=== PATIENT | female | born 1990 | race African-American/Black ===

== ENCOUNTER 2017-03-06 05:11 | Inpatient (IN) ==
[2017-03-06] MEDS ORDERED: LR 1,000 ML IV SCH ×2 (05:33→05:58)
[2017-03-06] MEDS ORDERED: STADOL IV ONE (05:34)
[2017-03-06 05:47] LABS: URINE SOURCE VOIDED
[2017-03-06 05:57] LABS: BILIRUBIN URINE NEGATIVE (NEGATIVE); BLOOD URINE 4+ (NEGATIVE); CLARITY CLEAR (CLEAR); COLOR YELLOW; GLUCOSE URINE NEGATIVE (NEGATIVE); LEUKOCYTES URINE 2+ (NEGATIVE); NITRITE URINE NEGATIVE (NEGATIVE); PROTEIN URINE TRACE mg/dL (NEGATIVE); SP GRAVITY URINE 1.015; UROBILINOGEN URINE 1+(1 mg/dL)
[2017-03-06] MEDS ORDERED: AMPICILLIN IV ONE (05:58)
[2017-03-06] MEDS ORDERED: PEPCID PO PRN (05:58)
[2017-03-06] MEDS ORDERED: TYLENOL PO PRN (05:58)
[2017-03-06] MEDS ORDERED: STADOL IV PRN (05:58)
[2017-03-06] MEDS ORDERED: PEPCID IV PRN (05:58)
[2017-03-06] MEDS ORDERED: [UNRECOGNIZED DRUG - OTHER] IV ONE (05:58)
[2017-03-06] MEDS ORDERED: KEFZOL 1 GM/D5W 1 GM/50 ML IVPB IV PRN (05:58)
[2017-03-06] MEDS ORDERED: PITOCIN 30 UNITS/LR 30 UNITS/500 ML IV.SOLN IV SCH (05:58)
[2017-03-06] MEDS ORDERED: ZOFRAN IV PRN (05:58)
[2017-03-06 06:00] LABS: UR AMPHETAMINES QUAL NONE DETECTED (NONE DETECT); UR BARBITUATES QUAL NONE DETECTED (NONE DETECT); UR BENZODIAZEPIN QUAL NONE DETECTED (NONE DETECT); UR COCAINE QUAL NONE DETECTED (NONE DETECT); UR MDMA QUAL NONE DETECTED (NONE DETECT); UR METHADONE QUAL NONE DETECTED (NONE DETECT); UR METHAMPHETAMINE QUAL NONE DETECTED (NONE DETECT); UR OPIATES QUAL NONE DETECTED (NONE DETECT); UR OXYCODONE QUAL NONE DETECTED (NONE DETECT); UR PCP QUAL NONE DETECTED (NONE DETECT)
[2017-03-06] MEDS ORDERED: SODIUM CHLORIDE 0.9% INJ SCH (06:00)
[2017-03-06 06:01] LABS: UR CANNABINOIDS QUAL NONE DETECTED (NONE DETECT); UR TCA QUAL NONE DETECTED (NONE DETECT)
[2017-03-06 06:02] LABS: MANUAL DIFF NEEDED? NO
[2017-03-06 06:05] LABS: BASO% 0.2 % (0.0-0.8); EOS# 0.03 X1000 (0.0-0.7); EOS% 0.4 % (0.0-10.0); HEMATOCRIT 32.9 % (37.0-47.0); HEMOGLOBIN 11.1 g/dL (12.0-16.0); IMM GRAN# 0.04 X1000 (0.0-0.04); IMM GRAN% 0.5 % (0.0-0.5); LYMPH# 2.39 X1000 (1.2-3.4); LYMPH% 28.5 % (20.5-51.1); MCH 29.5 PG (27-31); MCHC 33.7 g/dL (33-37); MCV 87.5 FL (81-99); MONO# 0.59 X1000 (0.11-0.59); MPV 10.3 FL (7.4-10.4); NEUT% 63.4 % (42.2-75.2); PLT 272 X1000 (130-400); RBC 3.76 XMIL (4.2-5.4)
[2017-03-06] MEDS ORDERED: NAROPIN 0.2% EPIDURAL SCH (07:15)
[2017-03-06] MEDS ORDERED: MINERAL OIL PO ONE (08:18)
[2017-03-06] MEDS ORDERED: PITOCIN 30 UNITS/LR 30 UNITS/500 ML IV.SOLN IV ONE (08:20)
[2017-03-06] MEDS ORDERED: BOOSTRIX VACCINE IM ONE (08:20)
[2017-03-06] MEDS ORDERED: NORCO-5 PO PRN (08:20)
[2017-03-06] MEDS ORDERED: XYLOCAINE-MPF 1% INJ PRN (08:20)
[2017-03-06] MEDS ORDERED: BENADRYL IV PRN (08:20)
[2017-03-06] MEDS ORDERED: PITOCIN IM PRN (08:20)
[2017-03-06] MEDS ORDERED: PITOCIN 20 UNITS/LR 20 UNITS/1,000 ML IV.SOLN IV SCH (08:20)
[2017-03-06] MEDS ORDERED: HYDROXYZINE IM PRN (08:20)
[2017-03-06] MEDS ORDERED: HYDROXYZINE PO PRN (08:20)
[2017-03-06] MEDS ORDERED: PERI MEDS (DERMOPLAST/NUPERCAINAL/TUCKS) MISC PRN (08:20)
[2017-03-06] MEDS ORDERED: BENADRYL PO PRN (08:20)
[2017-03-06] MEDS ORDERED: AMBIEN PO PRN (08:20)
[2017-03-06] MEDS ORDERED: MINERAL OIL PO PRN (08:20)
[2017-03-06] MEDS ORDERED: CYTOTEC PO PRN (08:20)
[2017-03-06] MEDS ORDERED: M-M-R II VACCINE SUBQ ONE (08:20)
[2017-03-06] MEDS ORDERED: AMPICILLIN 1 GM/NS 1 GM/50 ML IVPB IV SCH (09:59)
[2017-03-06] MEDS: NORCO-10 PO PRN ×2 (11:39→19:36)
[2017-03-06] MEDS: MOTRIN PO PRN ×2 (11:39→19:35)
[2017-03-06] MEDS: PERICOLACE PO SCH (21:16)
[2017-03-07 05:19] LABS: HEMATOCRIT 30.6 % (37.0-47.0); HEMOGLOBIN 10.1 g/dL (12.0-16.0); MCH 29.4 PG (27-31); MCV 89.2 FL (81-99); MPV 10.9 FL (7.4-10.4); RBC 3.43 XMIL (4.2-5.4)
[2017-03-07] MEDS: NORCO-10 PO PRN ×2 (11:07→23:56)
[2017-03-07] MEDS: MOTRIN PO PRN ×2 (11:07→23:56)
[2017-03-07] MEDS: PERICOLACE PO SCH (21:24)
[2017-03-08 07:58] VITALS: BP 147/89
[2017-03-08] MEDS: MOTRIN PO PRN (09:15)
[2017-03-08] MEDS: NORCO-10 PO PRN (12:57)
== END 2017-03-08 13:02 | disposition home or self-care (01) ==
LOC: P.OPLD 05:11 → P.LD 05:14 → P.WC 14:12
PROVIDERS: ADMIT Obstetrics & Gynecology; ATTEND Obstetrics & Gynecology

== ENCOUNTER 2019-08-16 09:32 | Inpatient (IN) ==
[2019-08-16] MEDS ORDERED: REGLAN PO ONE (09:41)
[2019-08-16] MEDS ORDERED: KEFZOL 1 GM/D5W 1 GM/50 ML IVPB IV PRN (09:41)
[2019-08-16] MEDS ORDERED: TYLENOL PO PRN (09:41)
[2019-08-16] MEDS ORDERED: PEPCID IV PRN (09:41)
[2019-08-16] MEDS ORDERED: PEPCID PO PRN (09:41)
[2019-08-16] MEDS ORDERED: PEPCID PO ONE (09:41)
[2019-08-16] MEDS ORDERED: STADOL IV PRN (09:41)
[2019-08-16] MEDS ORDERED: LR 500 ML IV ONE (09:41)
[2019-08-16] MEDS ORDERED: ZOFRAN IV PRN (09:41)
[2019-08-16] MEDS ORDERED: PITOCIN 30 UNITS/NS 30 UNIT/500 ML IV.SOLN IV SCH ×2 (09:45→11:00)
[2019-08-16] MEDS ORDERED: SODIUM CHLORIDE 0.9% INJ SCH (09:45)
[2019-08-16] MEDS ORDERED: AMPICILLIN 2 GM in NS 100 ML IV ONE (10:02)
[2019-08-16] MEDS: LR 1,000 ML IV SCH ×2 (10:07→10:30)
[2019-08-16] MEDS ORDERED: XYLOCAINE-MPF 1% INJ ONE (10:18)
[2019-08-16 10:20] LABS: BASO# 0.03 X1000 (0.0-0.2); BASO% 0.3 % (0.0-0.8); EOS# 0.07 X1000 (0.0-0.7); EOS% 0.7 % (0.0-10.0); HEMATOCRIT 31.6 % (37.0-47.0); HEMOGLOBIN 10.1 g/dL (12.0-16.0); IMM GRAN# 0.05 X1000 (0.0-0.04); IMM GRAN% 0.5 % (0.0-0.5); LYMPH# 2.98 X1000 (1.2-3.4); LYMPH% 30.1 % (20.5-51.1); MCH 28.8 PG (27-31); MONO# 0.59 X1000 (0.11-0.59); MPV 10.5 FL (7.4-10.4); NEUT# 6.18 X1000 (1.4-6.5); NEUT% 62.4 % (42.2-75.2); PLT 300 X1000 (130-400); RBC 3.51 XMIL (4.2-5.4); RDW 13.7 % (11.5-14.5)
[2019-08-16 10:32] LABS: URINE SOURCE VOIDED
[2019-08-16 10:41] LABS: INR 1.03; PROTIME 13.6 Seconds (11.0-16.0); PTT 28.8 Seconds (22.3-41.8)
[2019-08-16 10:44] LABS: BILIRUBIN URINE NEGATIVE (NEGATIVE); BLOOD URINE LARGE (NEGATIVE); COLOR BROWN; GLUCOSE URINE NEGATIVE (NEGATIVE); KETONE URINE NEGATIVE (NEGATIVE); LEUKOCYTES URINE MODERATE (NEGATIVE); NITRITE URINE NEGATIVE (NEGATIVE); PH URINE 7.5; PROTEIN URINE 70 mg/dL (NEGATIVE); TURBIDITY URINE TURBID (CLEAR); UROBILINOGEN URINE NORMAL (NORMAL)
[2019-08-16] MEDS ORDERED: HYDROXYZINE IM PRN (10:47)
[2019-08-16] MEDS ORDERED: CYTOTEC PO PRN (10:47)
[2019-08-16] MEDS ORDERED: MINERAL OIL PO PRN (10:47)
[2019-08-16] MEDS ORDERED: PERCOCET-10 PO PRN (10:47)
[2019-08-16] MEDS ORDERED: PITOCIN IM PRN (10:47)
[2019-08-16] MEDS ORDERED: XYLOCAINE-MPF 1% INJ PRN (10:47)
[2019-08-16] MEDS ORDERED: BENADRYL IV PRN (10:47)
[2019-08-16] MEDS ORDERED: PERI MEDS (DERMOPLAST/NUPERCAINAL/TUCKS) MISC PRN (10:47)
[2019-08-16] MEDS ORDERED: BENADRYL PO PRN (10:47)
[2019-08-16] MEDS ORDERED: ATARAX PO PRN (10:47)
[2019-08-16] MEDS ORDERED: BOOSTRIX VACCINE IM ONE (10:47)
[2019-08-16] MEDS ORDERED: AMBIEN PO PRN (10:47)
[2019-08-16] MEDS ORDERED: M-M-R II VACCINE SUBQ ONE (10:47)
[2019-08-16] MEDS ORDERED: PITOCIN 20 UNITS/NS 20 UNITS/1,000 ML IV.SOLN IV SCH (11:00)
[2019-08-16 11:06] LABS: UR AMPHETAMINES QUAL NONE DETECTED (NONE DETECT); UR BARBITUATES QUAL NONE DETECTED (NONE DETECT); UR BENZODIAZEPIN QUAL NONE DETECTED (NONE DETECT); UR CANNABINOIDS QUAL NONE DETECTED (NONE DETECT); UR COCAINE QUAL NONE DETECTED (NONE DETECT); UR METHADONE QUAL NONE DETECTED (NONE DETECT); UR OPIATES QUAL NONE DETECTED (NONE DETECT); UR OXYCODONE QUAL NONE DETECTED (NONE DETECT); UR PCP QUAL NONE DETECTED (NONE DETECT)
[2019-08-16] MEDS: MOTRIN PO PRN ×2 (11:50→20:01)
--- NOTE | 2019-08-16 11:58 | HISTORY AND PHYSICAL ---
ADMITTING PHYSICIAN: Dr. Bobbi Dickey. CHIEF COMPLAINT: Vaginal bleeding and abdominal pain. HISTORY OF PRESENT ILLNESS: This is a 28-year-old, G4, P1-2-0-3, at 36 weeks and 3 days, who presents to Labor and Delivery with a complaint of vaginal bleeding and frequent contractions that started approximately 1.5 hours ago. She denies any rupture of membranes. She endorses movement. She has a history of deliveries x2, and was transferred from [facility] to [facility] last week for contractions. She was discharged from [facility] on 08/12/2019. Upon arrival, her cervical exam was noted to be 3/80, and 0 station, with a small amount of dark red blood noted on exam. Upon my arrival, repeat cervical exam revealed cervix 8/90 and 0 station. Decision was made to admit the patient for labor. Her GBS status is unknown. She has received limited care through our clinic, and she is dated by a T2 ultrasound with an estimated due date of 09/10/2019. REVIEW OF SYSTEMS: Negative, except as mentioned in the HPI. OBSTETRIC HISTORY: 1. G1, spontaneous vaginal delivery at 40 weeks, male, 5 pounds 13 ounces (2016). 2. G2, Spontaneous vaginal delivery at 28 weeks, female, complicated by labor and delivery (2017). 3. G3, spontaneous vaginal delivery at 26 weeks, male, complicated by labor and delivery (2018). 4. G4 is her current . This has been complicated by limited care, short-interval , history of Chlamydia with treatment this , and history of delivery. GYNECOLOGIC HISTORY: History of Chlamydia this with treatment, and repeat testing negative. History of abnormal Pap smear in 2007 with cryotherapy. Menarche was at age 10. PAST MEDICAL HISTORY: Obesity, tobacco abuse. MEDICATIONS: vitamin p.o. daily. ALLERGIES: No known drug allergies. PAST SURGICAL HISTORY: History of breast reduction surgery. SOCIAL HISTORY: She smokes approximately 3 cigarettes a day. She denies any alcohol or drug use. FAMILY HISTORY: Mother with diabetes and hypertension, aunt with colon cancer, and a brother with asthma. LABORATORY DATA: Blood type O positive. HIV negative. RPR negative. Rubella nonimmune. Gonorrhea and chlamydia negative. Hepatitis B negative. Urinary drug screen negative. One-hour GTT 111. GBS status unknown. PHYSICAL EXAMINATION: VITAL SIGNS: Temperature 98.2 degrees, heart rate 105, blood pressure 141/96, respiratory rate 24, oxygen saturation 99% on room air. heart tracings 130/moderate/positive acceleration/positive variable decelerations, tocometer irritability. GENERAL: Alert, in moderate distress secondary to pain. CARDIOVASCULAR: Regular rate and rhythm. LUNGS: Clear to auscultation bilaterally. No respiratory distress. ABDOMEN: Soft, gravid, nontender. Soft in between contractions. PELVIC: Sterile vaginal exam at 8/80/0 station with a small amount of dark red blood noted on exam. EXTREMITIES: No clubbing, cyanosis, or edema. There are 2+ DTRs. IMAGING: Bedside ultrasound: Vertex presentation. ASSESSMENT AND PLAN: A 28-year-old, G4, P2-2-0-3, at 36 weeks and 3 days, who presents to Labor and Delivery in labor with a history of delivery x2, short-interval , limited care, tobacco abuse, obesity, history of chlamydia this with treatment. 1. Admit to Labor and Delivery. Maternal status reassuring. 2. Will draw CBC and coags due to vaginal bleeding on presentation. 3. Will treat GBS unknown status with ampicillin for prophylaxis. 4. The patient may have epidural if she desires. 5. Anticipate vaginal delivery. 6. CEFM/[place] JIM
--- NOTE | 2019-08-16 12:18 | OPERATIVE NOTE ---
PROCEDURE DATE: 08/16/2019 PROCEDURE: A 28-year-old, G4, P1-2-0-3, at 36 weeks and 3 days, presented to Labor and Delivery in labor. She progressed to complete quickly. AROM was performed prior to delivery with clear fluid mixed with blood. She underwent a spontaneous vaginal delivery of a vigorous, viable male over an intact perineum. delivered in SAIGE presentation, and head, body, and shoulders delivered without difficulty with maternal pushing effort. Apgars 8/10. Labor was spontaneous. Placenta delivered spontaneously with 3-vessel cord. No lacerations were noted. ANESTHESIA: None. BLOOD LOSS: 300 mL. Pediatric nurse in attendance. Mother stable. [facility]
[2019-08-16] MEDS: PERCOCET-5 PO PRN ×2 (12:26→21:40)
[2019-08-16] MEDS ORDERED: AMPICILLIN 1 GM in NS 50 ML IV SCH (14:02)
[2019-08-16] MEDS: PERICOLACE PO SCH (21:03)
[2019-08-17 05:21] LABS: BASO# 0.03 X1000 (0.0-0.2); BASO% 0.2 % (0.0-0.8); EOS% 1.4 % (0.0-10.0); HEMOGLOBIN 8.9 g/dL (12.0-16.0); IMM GRAN# 0.08 X1000 (0.0-0.04); IMM GRAN% 0.6 % (0.0-0.5); LYMPH# 3.63 X1000 (1.2-3.4); LYMPH% 25.9 % (20.5-51.1); MCH 28.7 PG (27-31); MCHC 31.8 g/dL (33-37); MCV 90.3 FL (81-99); MONO# 0.68 X1000 (0.11-0.59); MONO% 4.9 % (1.7-9.3); MPV 10.2 FL (7.4-10.4); NEUT# 9.37 X1000 (1.4-6.5); PLT 271 X1000 (130-400); RDW 13.7 % (11.5-14.5); WBC 13.99 X1000 (4.8-10.8)
--- NOTE | 2019-08-17 06:34 | OB/GYN PROGRESS NOTE ---
- Subjective Pt seen and examined. Currently w/o complaints. Ambulating and urinating w/o difficulty. Tolerating regular diet. Denies N/V/F/C. +bottle feeding. Reports decreased lochia. Desires Depo-Provera for contraception OB Physical Exam Vital Signs - 8 hr 08/17/19 00:10 08/17/19 05:05 Temperature 97.5 F L 97.0 F L Pulse Rate 81 71 Respiratory Rate 18 18 Blood Pressure 115/57 111/64 O2 Sat by Pulse Oximetry 97 100 - CONSTITUTIONAL General Appearance: appears well, alert, no apparent distress - RESPIRATORY Respiratory: lungs clear - CARDIOVASCULAR Cardiovascular: regular rate, rhythm - GASTROINTESTINAL (ABDOMEN) Abdominal Exam: normal bowel sounds, non tender, soft - MUSCULOSKELETAL Extremity: no pedal edema, no calf tenderness - PSYCHIATRIC Psych/Mental Status: normal mood/affect, oriented x 3 Active Medications Generic Name Dose Route Start Last Admin Trade Name Freq PRN Reason Stop Dose Admin Acetaminophen 650 mg 08/16/19 09:41 Tylenol PO Q4-6H PRN PRN Headache Benzocaine 1 each 08/16/19 10:47 Alina Meds (Dermoplast/Nupercainal/Tucks) MISC 3-4XDAY PRN PRN episiotomy/hemorrhoids Butorphanol Tartrate 2 mg 08/16/19 09:41 Stadol IV PRN PRN Pain Diphenhydramine HCl 12.5 mg 08/16/19 10:47 Benadryl IV Q4H PRN PRN Itching Diphenhydramine HCl 25 mg 08/16/19 10:47 Benadryl PO Q4H PRN PRN Itching Famotidine 40 mg 08/16/19 09:41 Pepcid PO Q12H PRN PRN GI upset or indigestion Hydroxyzine HCl 50 mg 08/16/19 10:47 Hydroxyzine IM Q3-4H PRN PRN Nausea Hydroxyzine HCl 50 mg 08/16/19 10:47 Atarax PO Q3-4H PRN PRN Nausea Oxytocin/Sodium Chloride 30 unit in 500 mls @ 0 mls/hr 08/16/19 09:45 08/16/19 10:40 Pitocin 30 Units/Ns IV 333 mls/hr .Q0M EDGAR Administration As Directed Oxytocin/Sodium Chloride 20 units in 1,000 mls @ 0 mls/hr 08/16/19 11:00 08/16/19 11:49 Pitocin 20 Units/Ns IV 125 mls/hr .Q0M EDGAR Administration As Directed Ibuprofen 800 mg 08/16/19 10:47 08/16/19 20:01 Motrin PO 800 mg Q8H PRN PRN Administration cramping Misoprostol 800 microgm 08/16/19 10:47 Cytotec PO PRN PRN Severe bleeding Ondansetron HCl 4 mg 08/16/19 09:41 Zofran IV PRN PRN Nausea Oxycodone/Acetaminophen 1 each 08/16/19 10:47 08/16/19 21:40 Percocet-5 PO 1 each Q3-4H PRN PRN Administration Pain (1-6 on Pain Scale) Oxycodone/Acetaminophen 1 each 08/16/19 10:47 Percocet-10 PO Q3-4H PRN PRN Pain (7-10 on Pain Scale) Oxytocin 20 unit 08/16/19 10:47 Pitocin IM PRN PRN Severe bleeding Senna/Docusate Sodium 1 each 08/16/19 21:00 08/16/19 21:03 Pericolace PO 1 each QHS EDGAR Administration Zolpidem Tartrate 10 mg 08/16/19 10:47 Ambien PO HS PRN PRN Sleep Laboratory Results - last 24 hr 08/16/19 08/16/19 08/16/19 09:35 09:35 09:55 WBC RBC Hgb Hct MCV MCH MCHC RDW Std Deviation Plt Count MPV Immature Gran % (Auto) Neut % (Auto) Lymph % (Auto) [place] % (Auto) Eos % (Auto) Baso % (Auto) Immature Gran # (Auto) Neut # (Auto) Lymph # (Auto) [place] # (Auto) Eos # (Auto) Baso # (Auto) PT INR PTT (Actin FS) Fibrinogen Urine Source VOIDED Urine Color BROWN Urine Turbidity TURBID Urine pH 7.5 Ur Specific [place] 1.020 Urine Protein 70 A Ur Glucose (Stick) NEGATIVE Ur Ketones (Stick) NEGATIVE Urine Blood LARGE A Urine Nitrite NEGATIVE Urine Bilirubin NEGATIVE Urobilinogen Dipstick NORMAL Urine Leukocytes MODERATE A Urine Opiates Screen NONE DETECTED Ur Oxycodone Screen NONE DETECTED Ur Methadone, Qual NONE DETECTED Ur Barbiturates Screen NONE DETECTED Ur Phencyclidine Scrn NONE DETECTED Ur Amphetamines Screen NONE DETECTED U Benzodiazepines Scrn NONE DETECTED Urine Cocaine Screen NONE DETECTED U Cannabinoids Screen NONE DETECTED RPR NON-REACTIVE 08/16/19 08/16/19 08/17/19 09:55 10:26 05:14 WBC 9.90 13.99 H RBC 3.51 L 3.10 L Hgb 10.1 L 8.9 L Hct 31.6 L 28.0 L MCV 90.0 90.3 MCH 28.8 28.7 MCHC 32.0 L 31.8 L RDW Std Deviation 13.7 13.7 Plt Count 300 271 MPV 10.5 H 10.2 Immature Gran % (Auto) 0.5 0.6 H Neut % (Auto) 62.4 67.0 Lymph % (Auto) 30.1 25.9 [place] % (Auto) 6.0 4.9 Eos % (Auto) 0.7 1.4 Baso % (Auto) 0.3 0.2 Immature Gran # (Auto) 0.05 H 0.08 H Neut # (Auto) 6.18 9.37 H Lymph # (Auto) 2.98 3.63 H [place] # (Auto) 0.59 0.68 H Eos # (Auto) 0.07 0.20 Baso # (Auto) 0.03 0.03 PT 13.6 INR 1.03 PTT (Actin FS) 28.8 Fibrinogen 409.0 Urine Source Urine Color Urine Turbidity Urine pH Ur Specific [place] Urine Protein Ur Glucose (Stick) Ur Ketones (Stick) Urine Blood Urine Nitrite Urine Bilirubin Urobilinogen Dipstick Urine Leukocytes Urine Opiates Screen Ur Oxycodone Screen Ur Methadone, Qual Ur Barbiturates Screen Ur Phencyclidine Scrn Ur Amphetamines Screen U Benzodiazepines Scrn Urine Cocaine Screen U Cannabinoids Screen RPR OB Assessment & Plan (1) Normal vaginal delivery Status: Acute Plan: 28yo PPD#1 s/p -HD stable -Start ferrous sulfate -OOB to ambulation -Reg diet -Desires Depo-Provera for contraception -continue routine PP care -plan for d/c home tomorrow
[2019-08-17] MEDS: FERROUS SULFATE PO SCH (10:20)
[2019-08-17] MEDS: PERCOCET-5 PO PRN ×2 (10:20→19:57)
[2019-08-17] MEDS: MOTRIN PO PRN ×2 (10:20→19:58)
[2019-08-17] MEDS: PERICOLACE PO SCH ×2 (19:58→20:05)
[2019-08-18] MEDS ORDERED: DEPO-PROVERA IM ONE ×2 (07:34→11:15)
[2019-08-18] MEDS ORDERED: FLU VACCINE IM ONE (09:00)
[2019-08-18 09:53] VITALS: BP 142/86
[2019-08-18] MEDS: FERROUS SULFATE PO SCH (09:54)
[2019-08-18] MEDS: MOTRIN PO PRN (09:54)
== END 2019-08-18 16:22 | disposition home or self-care (01) | DRG 807 ==
LOC: OPLD 09:32 → LD 09:33
PROVIDERS: ADMIT Student in an Organized Health Care Education/Training Program; ATTEND Student in an Organized Health Care Education/Training Program

== ENCOUNTER 2019-12-20 13:51 | Inpatient (IN) ==
[2019-12-20] MEDS ORDERED: TORADOL IV ONE (14:27)
--- NOTE | 2019-12-20 14:30 | PROVIDER DOCUMENTATION ---
HPI-Abdominal Pain/GI Problem - General Chief Complaint: Abdominal Pain Stated Complaint: ABD PAIN,VOMITING Time Seen by Provider: 12/20/19 14:14 Source: patient Allergies/Adverse Reactions: Patient Allergies Allergy/AdvReac Type Severity Reaction Status Date / Time No Known Allergies Allergy Verified 12/20/19 14:33 - History of Present Illness-ABD Nature of Presenting Problems: Patient is a 29yo BF who presents with complaints of generalized abdominal pain, worse in umbilical area, that began this morning. Reports her "belly button is hard." States pain is worsened with food. Reports 1 episode of emesis prior to arrival. States last BM was this morning and was normal. Reports 1.5 months ago, she had a laparoscopic tubal ligation. Denies fever, chills, diarrhea, flu-like symptoms, CP, SOB, or exposure to known or suspected sick contacts. Non-toxic in appearance. Abdominal Pain Onset Location: reports: generalized abdomen Pain Radiation: reports: no radiation Quality of Pain: reports: sharp, throbbing Severity in ED: reports: moderate Onset/Duration: reports: this morning Timing: reports: still present Activities at Onset: reports: none Exposure to sick contacts?: No Modifying Factors: improves with: nothing. worse with: eating Associated Symptoms: reports: nausea, vomiting (x1). denies: chest pain, cough, diarrhea, fever/chills, shortness of breath Last BM: this morning Dark Stools Present?: reports: none noticed Rectal Bleeding: reports: none # of Diarrhea Episodes: 0 Rectal Pain: reports: none # of Vomiting Episodes: 1 Emesis Description: reports: clear Bruising or Bleeding Gums?: No Similar Symptoms Previously?: No Recently seen or treated by another doctor?: No Review of Systems - Adult - REVIEW OF SYSTEMS - ADULT Constitutional: denies: chills, fever Eyes: reports: no symptoms reported Ears, Nose, Mouth & Throat: denies: sinus problem, throat pain Cardiovascular: denies: chest pain, palpitations Respiratory: denies: cough, shortness of breath Gastrointestinal: reports: see HPI, abdominal pain, nausea, vomiting. denies: diarrhea Genitourinary: denies: dysuria, frequency Musculoskeletal: reports: no symptoms reported Integumentary: reports: no symptoms reported Neurological: reports: no symptoms reported Psychiatric: reports: no symptoms reported Endocrine: reports: no symptoms reported Past History - Adult - PAST MEDICAL HISTORY-ADULT Review of Records: reports: Nursing Assessment Review, Medications Reviewed Major Childhood Illnesses: reports: denies history Cardiovascular: reports: denies history Respiratory: reports: denies history Gastrointestinal: reports: denies history Obstetrical/Gynecological: reports: other (abnormal pap) Genitourinary: reports: denies history Musculoskeletal: reports: denies history Neurological: reports: denies history Endocrine/Immune: reports: denies history Other Conditions: reports: other cancer (cervical ca) - PRIOR SURGERIES/PROCEDURES Surgical/Procedure History: reports: none - PRIOR HOSPITALIZATIONS Prior Hospitalizations: reports: none - IMMUNIZATION STATUS Childhood Immunizations: See Nurse Assessment Flu Vaccine: See Nurse Assessment - FAMILY HISTORY Family History: reviewed, not pertinent - SOCIAL HISTORY Smoking: cigarettes Provider spent 3-5 mins advising pt. on dangers of tobacco.: Discussed manners to quit use, and f/u contacts for add'l counseling. Physical Exam-General - PHYSICAL EXAM-ADULT Initial Vital Signs Reviewed: Yes - CONSTITUTIONAL General Appearance: appears well, alert, no apparent distress. negative: lethargic, slow to respond - EYES Eyes: PERRL/EOMI, pink conjunctivae. negative: EOM palsy, scleral icterus - HEAD, EARS, NOSE, MOUTH & THROAT HENMT: normocephalic/atraumatic, moist mucous membranes - NECK Neck: non-tender, full range of motion, supple, normal inspection - RESPIRATORY Respiratory: chest non-tender, lungs clear, normal breath sounds, no pleuratic chest pain, no respiratory distress, no accessory muscle use. negative: crackles, dull on percussion, retractions - CARDIOVASCULAR Cardiovascular: regular rate, rhythm, no gallop - GASTROINTESTINAL (ABDOMEN) Abdominal Exam: normal bowel sounds, soft, tenderness (diffusely tender to palpation, worse umbilical area). negative: guarding, rigid - MUSCULOSKELETAL Back Exam: normal inspection, no CVA tenderness, no vertebral tenderness Extremity: normal range of motion, non-tender, normal gait, normal inspection - SKIN Integumentary: normal color, warm/dry. negative: cyanosis, jaundice, pallor - NEUROLOGIC Neurologic: grossly normal - PSYCHIATRIC Psych/Mental Status: normal mood/affect, normal thought content, normal thought process, oriented x 3 Progress - PLAN OF CARE/RESULTS Progress/Plan/Lab Results: Vital Signs - 8 hr 12/20/19 14:04 Temperature 98.5 F Pulse Rate 92 H Respiratory Rate 18 Blood Pressure 112/77 O2 Sat by Pulse Oximetry 100 Orders Category Date Time Status ED: Urine Bedside ORDERED Care 12/20/19 14:14 Active Saline Loc NOW Care 12/20/19 14:14 Active AMYLASE [CHEM] Stat Lab 12/20/19 14:14 Uncollected CBC WITH ELECTRONIC DIFF [HEME] Stat Lab 12/20/19 14:14 Uncollected COMPREHENSIVE METABOLIC PANEL [CHEM] Stat Lab 12/20/19 14:14 Uncollected LIPASE [CHEM] Stat Lab 12/20/19 14:14 Uncollected URINALYSIS W/POSS RFLX CULT [URINALYSIS] Stat Lab 12/20/19 14:14 Uncollected 1637: Hernia able to be reduced by Dr. Wills. Pain improved after reduction of umbilical hernia. Surgery paged for consultation. 1642: Plan of care and need for admission discussed with patient who agrees with plan. Plan of care discussed and formulated in conjunction with Dr. Wills who also examined the patient. Result Diagrams: 12/20/19 14:23 12/20/19 14:23 - CT/MRI 1 CT Study: Abdomen, Pelvis Impression: See EMR Report ([facility] - [address] [facility], [address] [address] [facility] - [address] [place] [address] Department of Imaging Patient: VINH BARKLEY Date: 12/20/19MR#: [id number] : 1990ADM Status: [facility]#: [id number] Age/Sex: 29/FRoom/Bed: Loc: ED Ordering Physician: Maria Elena Jacobson Family Physician: None,PCP Reason for Procedure: abd pain; nausea; s/p laparoscopic tubal ligation ___ Signed EXAM: CT ABD/PELVIS W/IV CONT ONLY - 12/20/2019 HISTORY: abd pain; nausea; s/p laparoscopic tubal ligation TECHNIQUE: CT abdomen/pelvis with intravenous contrast. No oral contrast administered per request of the referring provider. COMPARISON: None. FINDINGS: The visualized lung bases a ppear clear except for slight dependent atelectasis. There are no substantial abnormalities of the liver, spleen, adrenal glands, or pancreas identified. There are no calcified gallstones or pericholecystic inflammation identified. The bilateral kidneys enhance homogeneously. There is no hydronephrosis. There are no substantially enlarged lymph nodes identified. There is a 5.2 cm in AP dimension by 3.1 cm in transverse dimension mildly lobulated mass at fluid collection at the left periumbilical region. There is an umbilical hernia which has a 2 cm in transverse dimension neck. There appears to be a loop of small bowel extending into the hernia. It is possible that the fluid collection r epresents a focally distended loop of small bowel, and the possibility of early incarceration cannot be excluded. However, evaluation of small bowel is mildly limited without administered oral contrast. There is no substantial bowel wall thickening identified. The remainder of the small bowel shows no evidence of obstruction. What appears to represent the appendix is unremarkable. There is no free air or abscess identified. There is an apparent 4 cm right ovarian cyst. There is a small amount of free fluid in the posterior pelvis. IMPRESSION: Umbilical hernia which contains a loop of small bowel. Septated or lobulated fluid collection at the left periumbilical region. The possibility that the fluid collection represents a focally distended small bowel loop from early incarceration in the hernia cannot be excluded. Surgical consultation is recommended. The remainder of the small bowel shows no evidence of obstruction. There is no evidence of free air or abscess. Apparent 4 cm right ovarian cyst. Small amount of free fluid in pelvis. This exam was performed using automated exposure control, adjustment of mA or kV according to patient size, and/or use of iterative reconstruction technique. Electronically signed by Jaycob Wright 12/20/2019 4:31 PM 12/20/19 1271 Interpreting Physician: Jaycob Wright MD Dictated Date/Time: 12/20/19 7460 cc: Maria Elena Jacobson; None,PCP) - CONSULTS/PCP/HOSPITALIST Notification #1 *Consult/PCP/Hospitalist*: Dr. Devlin Time Discussed: 16:42 Reason/Comments: Umbilical hernia with possible early incarceration Consult Disposition: Will see in ED, Admit (To Dr. Devlin; keep patient NPO and start IVF) Departure - Departure Date of Disposition Decision: 12/20/19 Time of Disposition Decision: 16:42 DIAGNOSIS: Umbilical hernia Qualifiers: Obstruction and gangrene presence: without obstruction or gangrene Qualified Code(s): K42.9 - Umbilical hernia without obstruction or gangrene Vomiting Qualifiers: Vomiting type: unspecified Vomiting Intractability: intractable Nausea presence: with nausea Qualified Code(s): R11.2 - Nausea with vomiting, unspecified Disposition: ADMITTED INPATIENT 09 Certified Medical Emergency: Emergent Condition: Stable Referrals and Follow-Ups: None,PCP [Primary Care Provider] - - Critical Care Note This patient required my direct & personal management of CC.: No Attestation - Physician/ SHANNAN Attestation Patient care was provided by Advanced Practice Provider:: Yes Advanced Practice Provider:: Maria Elena Jacobson Advanced Practice Provider documentation review:: The Mid-level provider documentation, treatment plan and medical decision making was reviewed by the physician who agrees with all treatment and medical decision making by the MLP. The physician spent face to face time with patient:: Yes (Johann) Advanced Practice Provider documentation review:: Supervising physician onsite and consulted in the evaluation and care of this patient. The physician did have a face to face encounter with the patient.
[2019-12-20 14:36] LABS: URINE SOURCE CLEAN CATCH
[2019-12-20 14:41] LABS: BILIRUBIN URINE NEGATIVE (NEGATIVE); BLOOD URINE MODERATE (NEGATIVE); COLOR YELLOW; GLUCOSE URINE NEGATIVE (NEGATIVE); KETONE URINE NEGATIVE (NEGATIVE); LEUKOCYTES URINE MODERATE (NEGATIVE); NITRITE URINE NEGATIVE (NEGATIVE); PH URINE 6.5; PROTEIN URINE TRACE mg/dL (NEGATIVE); SP GRAVITY URINE 1.025; TURBIDITY URINE CLEAR (CLEAR); UROBILINOGEN URINE NORMAL (NORMAL)
[2019-12-20 14:43] LABS: BASO# 0.03 X1000 (0.0-0.2); BASO% 0.3 % (0.0-0.8); EOS# 0.21 X1000 (0.0-0.7); EOS% 2.4 % (0.0-10.0); HEMATOCRIT 39.7 % (37.0-47.0); HEMOGLOBIN 12.9 g/dL (12.0-16.0); LYMPH# 2.41 X1000 (1.2-3.4); MCH 28.8 PG (27-31); MCHC 32.5 g/dL (33-37); MCV 88.6 FL (81-99); MONO# 0.54 X1000 (0.11-0.59); MONO% 6.1 % (1.7-9.3); MPV 9.2 FL (7.4-10.4); NEUT# 5.73 X1000 (1.4-6.5); NEUT% 64.2 % (42.2-75.2); PLT 363 X1000 (130-400); RBC 4.48 XMIL (4.2-5.4); RDW 13.6 % (11.5-14.5); UR EPITHELIAL CELLS <10 /HPF (<10); URINE BACTERIA NEGATIVE /HPF; URINE RBC 20-40 /HPF (<10); URINE WBC <10 /HPF (<10); WBC 8.92 X1000 (4.8-10.8)
[2019-12-20 15:01] LABS: AGAP 12; ALB/GLOB RATIO 1.1; ALKALINE PHOSPHATASE 103 U/L (32-104); AMYLASE 70 U/L (20-200); BUN 10 mg/dL (8-22); CALCIUM 8.9 mg/dL (8.8-10.2); CHLORIDE 101 mmol/L (98-107); COSMO 273; CREATININE 0.6 mg/dL (0.5-0.9); ESTIMATED GFR > 60; GLUCOSE 108 mg/dL (70-104); GOT 16 U/L (10-30); GPT 11 U/L (10-36); LIPASE 10 U/L (13-60); POTASSIUM 4.3 mmol/L (3.5-5.1); SODIUM 137 mmol/L (136-145); TCO2 24 mmol/L (25-35); TOTAL BILIRUBIN 0.27 mg/dL (0.20-1.00); TOTAL PROTEIN 7.8 g/dL (6.3-8.3)
--- NOTE | 2019-12-20 16:34 | Diag Imaging Result Doc PS360 ---
EXAM: CT ABD/PELVIS W/IV CONT ONLY - 12/20/2019 HISTORY: abd pain; nausea; s/p laparoscopic tubal ligation TECHNIQUE: CT abdomen/pelvis with intravenous contrast. No oral contrast administered per request of the referring provider. COMPARISON: None. FINDINGS: The visualized lung bases appear clear except for slight dependent atelectasis. There are no substantial abnormalities of the liver, spleen, adrenal glands, or pancreas identified. There are no calcified gallstones or pericholecystic inflammation identified. The bilateral kidneys enhance homogeneously. There is no hydronephrosis. There are no substantially enlarged lymph nodes identified. There is a 5.2 cm in AP dimension by 3.1 cm in transverse dimension mildly lobulated mass at fluid collection at the left periumbilical region. There is an umbilical hernia which has a 2 cm in transverse dimension neck. There appears to be a loop of small bowel extending into the hernia. It is possible that the fluid collection represents a focally distended loop of small bowel, and the possibility of early incarceration cannot be excluded. However, evaluation of small bowel is mildly limited without administered oral contrast. There is no substantial bowel wall thickening identified. The remainder of the small bowel shows no evidence of obstruction. What appears to represent the appendix is unremarkable. There is no free air or abscess identified. There is an apparent 4 cm right ovarian cyst. There is a small amount of free fluid in the posterior pelvis. IMPRESSION: Umbilical hernia which contains a loop of small bowel. Septated or lobulated fluid collection at the left periumbilical region. The possibility that the fluid collection represents a focally distended small bowel loop from early incarceration in the hernia cannot be excluded. Surgical consultation is recommended. The remainder of the small bowel shows no evidence of obstruction. There is no evidence of free air or abscess. Apparent 4 cm right ovarian cyst. Small amount of free fluid in pelvis. This exam was performed using automated exposure control, adjustment of mA or kV according to patient size, and/or use of iterative reconstruction technique. Electronically signed by Jaycob Wright 12/20/2019 4:31 PM
[2019-12-20] MEDS ORDERED: MORPHINE IV ONE (16:43)
[2019-12-20] MEDS ORDERED: ZOFRAN IV ONE (16:43)
[2019-12-20] MEDS ORDERED: NS 1,000 ML IV ONE (16:43)
--- NOTE | 2019-12-20 18:07 | HISTORY AND PHYSICAL ---
DATE OF ADMISSION: 12/20/2019 CHIEF COMPLAINT: Abdominal pain. REASON FOR ADMISSION: Incarcerated hernia. HPI: This is a 29-year-old female who is status post laparoscopic tubal ligation by DR. Menchaca back earlier in October. This was apparently uncomplicated, she has had 4 prior pregnancies. She said she had not really noticed a bulge here but today she developed more tender, firm knot [*]single episode of nausea, came the ER where CT scan was obtained that showed a incarcerated loop of small bowel within the umbilical hernia was reduced by Dr. Wills and she felt better. We discussed admission for observation versus close followup as an outpatient. She has elected to stay even despite potential viral exposure. MEDICAL HISTORY: Negative other than tobacco abuse. SURGICAL HISTORY: Tubal ligation, she has had 4 previous pregnancies. SOCIAL HISTORY: She does smoke a pack a day, denies alcohol. I do not believe she works. FAMILY HISTORY: Reviewed, negative for cancer. REVIEW OF SYSTEMS: Ten point negative other than what is mentioned HPI. PHYSICAL EXAM: She is afebrile, pulse 91, blood pressure 129/79, she is 215 pounds, 5 foot 2.General: She is alert, no acute distress. HEENT: No scleral icterus. No cervical mass. Cardiovascular: Normal rate. Pulmonary: No increased work of breathing. Abdomen: Soft, nontender, nondistended. There is a palpable hernia defect her umbilicus but with no evidence of incarcerated viscera, is nontender. No overlying skin changes. Psychiatric: Appropriate affect. Neurologic: No gross deficits. Peripheral vascular: Trace lower extremity edema. Lymphatic: No cervical or axillary adenopathy. LAB: White count is 8, hematocrit 39, platelets 363,000, creatinine 0.6. LFTs normal. Lipase is 10. Urinalysis does show moderate leukocytes. I reviewed her CT scan. ASSESSMENT/PLANS: 29-year-old female with a brief incarceration of umbilical hernia. I have recommended elective repair of this and smoking cessation prior. Will observe her tonight to ensure that her abdominal exam does not change, keep her n.p.o. and plan to advance her diet tomorrow let her go home if she feels well. We did have discussion about observation at home with close followup if symptoms worsen and then my office to schedule elective surgery especially in the setting of pandemic. However, she would like to stay as she is quite concerned about the episode she had earlier today. Will apply abdominal binder and I have cautioned her on signs and symptoms of this going forward. She understands. We will also treat her UTI that she has. cc: Sivakumar Devlin MD
[2019-12-20] MEDS ORDERED: ZOFRAN IV PRN (20:04)
[2019-12-20] MEDS ORDERED: ULTRAM PO PRN (20:04)
[2019-12-20] MEDS: CIPRO PO SCH (21:30)
[2019-12-20] MEDS: LR 1,000 ML IV SCH (22:34)
[2019-12-21] MEDS: LR 1,000 ML IV SCH (06:28)
--- NOTE | 2019-12-21 07:06 | DISCHARGE SUMMARY ---
ADMISSION DATE: 12/20/2019 DISCHARGE DATE: 12/21/2019 ADMITTING DIAGNOSIS: Umbilical hernia. DISCHARGE DIAGNOSIS: Umbilical hernia. PROCEDURE PERFORMED: None. HISTORY OF PRESENT ILLNESS: This 29-year-old female, who had incisional hernia from laparoscopic tubal ligation, came to the ER with a brief episode of incarceration. It was reduced and she was observed overnight with no further symptoms. No pain. No nausea, vomiting. Hemodynamically, she was stable. She was felt safe for discharge. Follow up with me in the next couple weeks. DISCHARGE INSTRUCTIONS: She is to wear an abdominal binder at all times, and to quit smoking and attempt to lose weight prior to elective hernia repair. We discussed signs and symptoms of worsening; she will come back to the ER if this were to develop. Continue to gradually advance her diet as tolerated. MEDICATIONS: She can resume her home medications, but no new prescriptions were provided. cc: Sivakumar Devlin MD
[2019-12-21 07:49] VITALS: BP 122/64
[2019-12-21] MEDS: CIPRO PO SCH (08:17)
== END 2019-12-21 12:53 | disposition home or self-care (01) | DRG 394 ==
LOC: ED 13:51 → 4N 18:48
PROVIDERS: ADMIT Surgery; ATTEND Surgery